=== PATIENT | female | born 1955 | race Asian ===

== ENCOUNTER 2017-06-17 01:51 | Emergency (ER) | payer OTHER ==
[~2017-06-17 01:51] MED LIST: ECO81 PO; LAC PO; LISINOPRIL2.5 MG PO; LOVASTATIN40 MG PO; MAC100 PO; METOPROLOL SUCC25 M1 PO; METOPROLOL TART25 M1 PO; OMEPRAZOLE DR20 M1 PO; UNKNOWN HTN MED
[2017-06-17 02:45] VITALS: BP 142/78
== END 2017-06-17 02:45 | disposition home or self-care (01) ==
LOC: ED 01:51
DX: N39.0 Urinary tract infection, site not specified (principal); I10 Essential (primary) hypertension; E78.5 Hyperlipidemia, unspecified; Z90.710 Acquired absence of both cervix and uterus

== ENCOUNTER 2018-05-01 21:04 | Inpatient (IN) | payer OTHER ==
[~2018-05-01] VITALS: Ht 160 cm; Wt 66.2 kg
[2018-05-01 21:16] VITALS: Ht 160 cm; Wt 66.2 kg
[2018-05-01 22:22] LABS: microscopic required? NO
[2018-05-01 22:32] LABS: UA SPECIFIC GRAVITY 1.015 (1.005-1.035); urine erythrocyte NEGATIVE (NEGATIVE)
[2018-05-01 23:10] LABS: BASOPHIL % 0.4 % (0-2); PLATELET COUNT 173 x10^3mcL (130-400); RED CELL DISTRIBUTION WIDTH 12.3 % (11.5-14.5)
[2018-05-01 23:20] LABS: CALCIUM 8.5 mg/dL (8.5-10.1); CARBON DIOXIDE 27.3 mmol/L (21-32); CHLORIDE SERUM 108 mmol/L (98-107); CREATININE SERUM 0.7 mg/dL (0.6-1.0); GFR1 > 60 mL/min; GLUCOSE SERUM 132 mg/dL (74-106); POTASSIUM SERUM 3.6 mmol/L (3.5-5.1); SODIUM SERUM 143 mmol/L (136-145)
[2018-05-01 23:25] LABS: ALBUMIN 3.7 g/dL (3.4-5.0); ALKALINE PHOSPHATASE 78 U/L (46-116); ALT/SGPT 21 U/L (14-59); AST/SGOT 16 U/L (15-37); BILIRUBIN TOTAL 0.3 mg/dL (0.20-1.00); TOTAL PROTEIN, SERUM 7.2 g/dL (6.4-8.2)
[2018-05-02] MEDS ORDERED: SIMVASTATIN10 M1 PO (01:43)
[2018-05-02] MEDS ORDERED: AMLODIPINE BES2.5 M1 PO (01:43)
[2018-05-02 01:45] LABS: CHOLESTEROL/HDL RATIO 3.6; MAGNESIUM 2.4 mg/dL (1.8-2.4)
[2018-05-02 02:12] VITALS: BP 133/82
[2018-05-02 02:32] LABS: T3 TOTAL 1.01 ng/mL
[2018-05-02 02:42] LABS: FREE T4 0.97 ng/dL (0.76-1.46); FREE THYROXINE INDEX 2.7 ug/dL (1.4-4.5); T4(THYROXINE) 7.6 ug/dL (4.7-13.3)
[2018-05-02 05:13] LABS: AMPHETAMINE QUAL UR NONE DETECTED (See below)
[2018-05-02 06:10] LABS: BASOPHIL % 0.4 % (0-2); PLATELET COUNT 168 x10^3mcL (130-400); RED CELL DISTRIBUTION WIDTH 12.7 % (11.5-14.5)
[2018-05-02 06:11] VITALS: BP 125/76
[2018-05-02 06:29] LABS: CALCIUM 8.6 mg/dL (8.5-10.1); CARBON DIOXIDE 27.5 mmol/L (21-32); CHLORIDE SERUM 109 mmol/L (98-107); CREATININE SERUM 0.6 mg/dL (0.6-1.0); GFR1 > 60 mL/min; GLUCOSE SERUM 101 mg/dL (74-106); POTASSIUM SERUM 3.6 mmol/L (3.5-5.1); SODIUM SERUM 143 mmol/L (136-145)
[2018-05-02 08:40] VITALS: BP 115/73
[2018-05-02 11:13] VITALS: BP 115/73
== END 2018-05-02 13:40 | disposition home or self-care (01) | DRG 422 ==
LOC: ED 21:04 → DU 05-02 01:04
PROVIDERS: Emergency Medicine; Family Medicine
DX: E86.0 Dehydration (principal); N17.0 Acute kidney failure with tubular necrosis; G90.8 Other disorders of autonomic nervous system; R73.03 Prediabetes; I10 Essential (primary) hypertension; E78.5 Hyperlipidemia, unspecified; Z68.24 Body mass index [BMI] 24.0-24.9, adult; Z79.82 Long term (current) use of aspirin
CPT/HCPCS: 82962; 83880; 84439; J7030; J8597; Q0092

== ENCOUNTER 2019-07-30 00:47 | Emergency (ER) | payer OTHER ==
[~2019-07-30] VITALS: Ht 160 cm; Wt 65.8 kg
[~2019-07-30 00:47] MED LIST changes: +AMLODIPINE BES2.5 M1 PO; +SIMVASTATIN10 M1 PO
[2019-07-30 01:07] VITALS: Ht 160 cm; Wt 65.8 kg
[2019-07-30 03:45] VITALS: BP 130/81
== END 2019-07-30 03:45 | disposition home or self-care (01) ==
LOC: ED 00:47
DX: R42 Dizziness and giddiness (principal); I10 Essential (primary) hypertension; E78.5 Hyperlipidemia, unspecified; Z90.710 Acquired absence of both cervix and uterus; Z98.890 Other specified postprocedural states
CPT/HCPCS: J8597